=== PATIENT | male | born 1950 | race Caucasian/White ===

== ENCOUNTER 2016-10-14 12:27 | Emergency (ER) | payer MEDICAID ==
--- NOTE | 2016-10-14 12:53 | EDM.PDOC ---
ED HPI GENERAL MEDICAL PROBLEM - General Chief Complaint: Skin Complaint Stated Complaint: SPIDER BITE Time Seen by Provider: 10/14/16 12:40 - History of Present Illness INITIAL COMMENTS - FREE TEXT/NARRATIVE: HISTORY AND PHYSICAL: History of present illness: The patient is a 66-year-old male with no stated medical problems who presents for evaluation of a wound that he sustained about 8 days ago which he believes to be a spider bite. He says he has a lot of spiders where he is staying and he has had spider veins in the past. The patient does not live here locally but is visiting his daughter and is here for a second opinion. The patient says he sustained a bite 8 days ago and was seen several days ago at an ER in [place] where the attempted an incision and drainage because there might have been some fluctuance but no pus was expressed. The patient was not placed on antibiotic for that time. He is concerned because of the surrounding erythema and wanted a second opinion. The patient has full range of motion of his left upper extremity and has no systemic complaints. The patient is unsure of his last tetanus shot but does not want one today. The daughter was concerned that if it was a brown recluse whether or not further intervention need to occur. Review of systems: As per history of present illness and below otherwise all systems reviewed and negative. Past medical history: As per history of present illness and as reviewed below otherwise noncontributory. Surgical history: As per history of present illness and as reviewed below otherwise noncontributory. Social history: No reported history of drug or alcohol abuse. Family history: As per history of present illness and as reviewed below otherwise noncontributory. Physical exam: Gen.: Well-developed well-nourished male who is nontoxic and speaking clearly and easily. Vital signs are stable HEENT: Atraumatic, normocephalic, negative for conjunctival pallor or scleral icterus, mucous membranes moist, throat clear, neck supple, nontender, trachea midline. Lungs: Clear to auscultation, breath sounds equal bilaterally, chest nontender. Heart: S1S2, regular rate and rhythm no overt murmurs Abdomen: Soft, nondistended, nontender. NABS Skin: Normal turgor no evidence of any rashes or lesions with the exception of the left upper extremity please see exam below Genitourinary: Deferred. Rectal: Deferred. Extremities: Atraumatic, negative for cords or calf pain. Neurovascular unremarkable. Full range of motion without any defects deformities or muscle tenderness. At the lateral axillary line of the left upper extremity there is a 2 x 2.5cm area with a central scab any surrounding rim of erythema that has duration but no fluctuance. In the inferior aspect of this you can see an old incision line where the incision and drainage was attempted per the patient's history. There is no gross tenderness or gross soft tissue swelling in the surround and the patient is able to range of motion the left upper extremity without any defects deformities or deficits. The central scab itself is very hardened and somewhat dark in color but is already starting to retract from healing by secondary intention Neuro: Awake, alert, oriented. Cranial nerves II through XII unremarkable. Cerebellum unremarkable. Motor and sensory unremarkable throughout. Exam nonfocal. Diagnostics: [] Therapeutics: [] Impression: Insect bite subacute with surrounding cellulitis Definitive disposition and diagnosis as appropriate pending reevaluation and review of above. - Related Data Allergies Allergy/AdvReac Type Severity Reaction Status Date / Time No Known Allergies Allergy Verified 10/14/16 12:36 Home Meds: Home Meds Benazepril HCl [Lotensin] 100 mg PO DAILY 10/14/16 [History] Omeprazole 20 mg PO BIDAC 10/14/16 [History] Past Medical History - Past Health History Medical/Surgical History: Denies Medical/Surgical History Cardiovascular History: Reports: Hypertension Social & Family History - Family History Family Medical History: Noncontributory - Tobacco Use Smoking Status *Q: Never Smoker - Recreational Drug Use Recreational Drug Use: No ED ROS GENERAL - Review of Systems Review Of Systems: ROS reveals no pertinent complaints other than HPI. ED EXAM, SKIN/RASH Exam: See Below (See dictation) Course - Vital Signs Last Recorded V/S: Last Vital Signs Temp 36.6 C 10/14/16 12:30 Pulse 58 L 10/14/16 12:30 Resp 18 10/14/16 12:30 BP 162/84 H 10/14/16 12:30 Pulse Ox 95 10/14/16 12:30 Departure - Departure Time of Disposition: 12:54 Disposition: Home, Self-Care 01 Condition: Good Clinical Impression: Cellulitis Qualifiers: Site of cellulitis: extremity Site of cellulitis of extremity: upper extremity Laterality: left Qualified Code(s): L03.114 - Cellulitis of left upper limb Insect bite Qualifiers: Encounter type: initial encounter Qualified Code(s): W57.XXXA - Bitten or stung by nonvenomous insect and other nonvenomous arthropods, initial encounter - Discharge Information Referrals: PCP,None [Primary Care Provider] - Additional Instructions: The following information is given to patients seen in the emergency department who are being discharged to home. This information is to outline your options for follow-up care. We provide all patients seen in our emergency department with a follow-up referral. The need for follow-up, as well as the timing and circumstances, are variable depending upon the specifics of your emergency department visit. If you don't have a primary care physician on staff, we will provide you with a referral. We always advise you to contact your personal physician following an emergency department visit to inform them of the circumstance of the visit and for follow-up with them and/or the need for any referrals to a consulting specialist. The emergency department will also refer you to a specialist when appropriate. This referral assures that you have the opportunity for followup care with a specialist. All of these measure are taken in an effort to provide you with optimal care, which includes your followup. Under all circumstances we always encourage you to contact your private physician who remains a resource for coordinating your care. When calling for followup care, please make the office aware that this follow-up is from your recent emergency room visit. If for any reason you are refused follow-up, please contact the [facility] emergency department at and ask to speak to the emergency department charge nurse. [facility] Primary care- Internal Medicine and Family [address] [id number] These take antibiotics as directed and continue to cleanse the area with mild soap and water and apply bacitracin or Neosporin as you choose. These follow-up with your provider at home or where you work or one of our clinic physicians for reevaluation of treatment plan. Return to ER as needed and as discussed
[2016-10-14 13:43] VITALS: BP 134/74
== END 2016-10-14 13:02 | disposition home or self-care (01) ==
LOC: MW.ED 12:27
DX: S40.862A Insect bite (nonvenomous) of left upper arm, initial encounter (principal); L03.114 Cellulitis of left upper limb; I10 Essential (primary) hypertension; Z79.899 Other long term (current) drug therapy; W57.XXXA Bitten or stung by nonvenomous insect and other nonvenomous arthropods, initial encounter
CPT/HCPCS: 99282; 99283